=== PATIENT | male | born 1975 | race Hispanic/Latino ===

== ENCOUNTER → 2023-02-09 | Emergency (ER) | payer OTHER ==
[~2023-02-09] VITALS: Ht 180.3 cm; Wt 99.8 kg
[~2023-02-09] MED LIST: AMLODIPINE BESY10 MG PO; ARIPIPRAZOLE2 MG PO; ATENOLOL25 MG PO; ATORVASTATIN CA80 MG PO; BENZTROPINE MESY1 MG PO; CLOTRIMAZOLE45 G1; CLOZAPINE200 MG PO; FENOFIBRATE145 MG PO; FLUTICASONE PRO16 GM NAS; HYDROCHLOROTHIA25 MG PO; INSULIN GL100 UNIT/2; INVEGA TRI IM; KLOR-CON20 MEQ PO; LEVOTHYROXINE25 MCG PO; LITHIUM CARBON300 MG PO; METFORMIN HCL500 MG PO; NOVOLOG FL100 UNIT/1 SUB-Q; PANTOPRAZOLE SO40 MG PO; PIOGLITAZONE HC30 MG PO; RISPERIDONE2 MG PO; TRULICITY0.75 MG/0. SQ; ZAFIRLUKAST10 MG PO; ZYPREXA10 MG PO
--- OUTSIDE RECORDS SUMMARY | 2023-02-09 19:20 | XMS ---
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 PHONE: [phone] -Meghan- Dentist: Tax Auditor [facility] PHONE: [phone] Moy has no Care Guidelines for this patient. Cuca VISIT COUNT (12 MO.) 1 DOMINIK Lerma TOTAL 1 NOTE: Visits indicate total known visits. ED/UCC VISIT TRACKING (12 MO.) 02/09/2023 19:19 DOMINIK Deleon OR TYPE: Emergency COMPLAINT: - MEDICAL CLEARANCE INPATIENT VISIT TRACKING (12 MO.) No inpatient visits to display in this time frame [email or web address]
[2023-02-10 08:56] LABS: BASOPHILS 0.9 % (0-2); BILIRUBIN, URINE NEGATIVE (negative); BLOOD/HGB, URINE NEGATIVE (Negative); EOSINOPHILS 5.6 % (0-6); HEMATOCRIT 47.2 % (35.0-50.0); HEMOGLOBIN 16.3 g/dL (12.0-18.0); KETONE, URINE NEGATIVE (Negative); LEUK ESTERASE, URINE NEGATIVE (negative); LYMPHOCYTES 35.3 % (24-44); MCH 31.7 (27-36); MCHC 34.6 g/dl (30-36); MCV 91.6 fl (81-99); MONOCYTES 6.4 % (0-12); NEUTROPHILS 51.8 % (39-80); NITRITE, URINE NEGATIVE (negative); PH, URINE 5.5 (5-7); PLATELET COUNT 210 K/uL (140-440); RBC 5.15 M/ul (4.3-5.7); RDW 12.6 (10.5-15.0)
[2023-02-10 09:10] LABS: AMPHETAMINES, URINE NEGATIVE (NEGATIVE); BARBITURATES, URINE NEGATIVE (NEGATIVE); BENZODIAZEPINE, URINE NEGATIVE (NEGATIVE); BUPRENORPHINE, URINE NEGATIVE (NEGATIVE); CANNABINOID, URINE NEGATIVE (NEGATIVE); COCAINE, URINE NEGATIVE (NEGATIVE); ECSTASY, URINE NEGATIVE (NEGATIVE); FENTANYL, URINE NEGATIVE (NEGATIVE); METHADONE, URINE NEGATIVE (NEGATIVE); OPIATES, URINE NEGATIVE (NEGATIVE); OXYCODONE, URINE NEGATIVE (NEGATIVE); PHENCYCLIDINE, URINE NEGATIVE (NEGATIVE)
[2023-02-10 09:17] LABS: ACETAMINOPHEN 0 ug/mL (10-30); ALBUMIN/GLOBULIN RATIO 1.29 (1.1-2.4); ALCOHOL, MEDICAL <3 ng/dL (<3); ALKALINE PHOSPHATASE 177 U/L (46-116); ALT (SGPT) 60 U/L (14-59); AST (SGOT) 27 U/L (15-37); BILIRUBIN, TOTAL 0.5 ng/dL (0.2-1.0); BUN/CREATININE RATIO 13.95 (6.0-28.6); CALCIUM 9.4 mg/dL (8.5-10.1); CARBON DIOXIDE 26 mmol/L (21-32); CHLORIDE 97 mmol/L (98-107); CREATININE, SERUM 0.86 mg/dL (0.70-1.30); GLOMERULAR FILTRATION RATE,EST 109 mL/min (>60); PROTEIN, TOTAL 7.1 g/dL (6.4-8.2); TSH, 3RD GENERATION 1.323 uIU/mL (0.358-3.740); UREA NITROGEN 12 mg/dL (7-18)
[2023-02-10 21:04] LABS: INFLUENZA B NAA NEGATIVE (NEGATIVE); RESPIRATORY SYNCYTIAL VIR NAA NEGATIVE (NEGATIVE)
[2023-02-12 10:10] VITALS: BP 142/94
== END ==
LOC: ED 19:18
PROVIDERS: Family Medicine
DX: F20.9 Schizophrenia, unspecified (principal); R45.89 Other symptoms and signs involving emotional state; R45.850 Homicidal ideations; F17.200 Nicotine dependence, unspecified, uncomplicated; Z88.0 Allergy status to penicillin; Z79.51 Long term (current) use of inhaled steroids; Z79.890 Hormone replacement therapy; Z79.84 Long term (current) use of oral hypoglycemic drugs; Z79.899 Other long term (current) drug therapy; Z79.4 Long term (current) use of insulin; Z20.822 Contact with and (suspected) exposure to COVID-19
CPT/HCPCS: 36415; 80053; 80307; 81003; 84443; 85025; 87502; A9270; G0480; U0002